=== PATIENT | female | born 2000 | race Caucasian/White ===

== ENCOUNTER 2024-02-01 07:26 | Emergency (ER) | payer SELFPAY ==
[2024-02-01 07:44] VITALS: BP 110/64; PULSE 73; RESP 18; TEMP 97.5; BMI 20.2
[2024-02-01] MEDS ORDERED: FAMOTIDINE 20 MG/50 ML IVPB 20 MG/50 ML MG IVPB ONE (08:38)
[2024-02-01] MEDS ORDERED: ONDANSETRON 4 MG/2 ML VIAL ONE (08:38)
[2024-02-01] MEDS ORDERED: MAG HYDROX/AL HYDROX/SIMETH 30 ML UNIT-DOSE CUP ONE (08:38)
[2024-02-01] MEDS: FAMOTIDINE 20 MG/50 ML IVPB 20 MG/50 ML MG IVPB ONE (08:54)
[2024-02-01] MEDS: MAG HYDROX/AL HYDROX/SIMETH 30 ML UNIT-DOSE CUP PO ONE (08:54)
[2024-02-01] MEDS: SODIUM CHLORIDE 1,000 ML IV STA (08:54)
[2024-02-01] MEDS: ONDANSETRON 4 MG/2 ML VIAL IVPUSH ONE (08:54)
[2024-02-01 08:59] LABS: BASO % 0.3 % (0-2.0); EOS % 0.4 % (0-4.5); HEMATOCRIT 36.9 % (32.4-45.2); HEMOGLOBIN 12.6 GM/dL (10.7-15.3); MCHC 34.3 g/dl (32.0-36.0); MEAN CELL VOLUME 93.3 fl (80-96); MEAN PLT VOLUME 7.8 fl (7.5-11.1); MONO % 5.2 % (3.8-10.2); NEUT % 72.1 % (42.8-82.8); PLATELET COUNT 214 10^3/uL (134-434); RBC 3.96 M/mm3 (3.60-5.2); RDW 12.9 % (11.6-15.6); WHITE BLOOD COUNT 8.9 K/mm3 (4.0-10.0)
[2024-02-01 09:16] LABS: POTASSIUM 3.8 mmol/L (3.5-5.1)
[2024-02-01 09:23] LABS: ALBUMIN 3.7 g/dl (3.4-5.0); BLOOD UREA NITROGEN 17.3 mg/dL (7-18); CALCIUM 8.8 mg/dL (8.5-10.1)
[2024-02-01 09:26] LABS: CREATININE 0.6 mg/dL (0.55-1.3)
[2024-02-01 09:27] LABS: BILIRUBIN,TOTAL 0.4 mg/dL (0.2-1); TOT PROT 6.8 g/dl (6.4-8.2)
== END 2024-02-01 11:20 | disposition home or self-care (01) ==
LOC: JER 07:26
PROC: 3E033GC Introduction of Other Therapeutic Substance into Peripheral Vein, Percutaneous Approach (ICD-10-PCS; principal; 2024-02-01)
PROC: 3E033GC Introduction of Other Therapeutic Substance into Peripheral Vein, Percutaneous Approach (ICD-10-PCS; 2024-02-01)
PROC: 3E0337Z Introduction of Electrolytic and Water Balance Substance into Peripheral Vein, Percutaneous Approach (ICD-10-PCS; 2024-02-01)
DX: K21.9 Gastro-esophageal reflux disease without esophagitis (principal)
CPT/HCPCS: 36415; 80053; 85025; 99284-25